=== PATIENT | female | born 1975 | race Asian ===

== ENCOUNTER 2018-01-15 22:45 | Emergency (ER) | payer OTHER ==
[~2018-01-15] VITALS: Ht 160 cm; Wt 56.7 kg
[~2018-01-15 22:45] MED LIST: CEPHALEXIN500 MG ORAL; COLACE100 MG ORAL; NKM; NORCO 5-325 TA1 EACH ORAL
--- NOTE | 2018-01-15 22:52 | Emergency Room Report ---
History of Present Illness General Chief Complaint: To Be Triaged Source: Patient Present Illness HPI 42YOF walk-in with 5 days of using 1 pad ever 30min-60min for heavy menstrual bleeding No associated pain Associated with weakness today, SOB on exerion Denies chance of , polyuria Does have some dysuria Denies chest pain, SOB, palpitations, abd pain, vomiting, dizziness has had this for >1 year Previously she had audio/visual operator than usual menstrual period Seen [employer]ION [employer]IC[employer], thought d/t cervical cyst TV sonos did Not show fibroid uterus Bleeding with any instrumentation, pap smear, speculum, intercourse No self or family history of excessive bleeding Started on oral control 3 weeks ago for menorrhagia, but doesnt take every day bc of side effects Patient had 5 abortions Initial 2-3 were D&C, subsequent from pill She told this to her CONTRIBUTION SOLICITOR but they didnt take the D&C and instrumentation would be contributing factor Allergies: Coded Allergies: No Known Allergies (Unverified , 01/15/18) Patient History Past Medical History: none Past Surgical History: none Pertinent Family History: none Social History: Denies: smoking, alcohol use, drug use Now: No Immunizations: UTD Reviewed Nursing Documentation: PMH: Agreed, PSxH: Agreed Review of Systems All Other Systems: negative except mentioned in HPI Physical Exam Sp02 EP Interpretation: reviewed, normal General Appearance: normal inspection, well appearing, no apparent distress, alert, GCS 15, non-toxic Head: normocephalic, atraumatic Eyes: bilateral eye PERRL, bilateral eye EOMI ENT: normal ENT inspection, hearing grossly normal, normal pharynx, no angioedema, normal voice, TMs + canals normal, uvula midline, moist mucus membranes Neck: normal inspection, full range of motion, supple, thyroid normal, no meningismus, no bony tend Respiratory: normal inspection, lungs clear, normal breath sounds, no rhonchi, no respiratory distress, no retraction, no accessory muscle use, no wheezing, speaking full sentences Cardiovascular #1: regular rate, rhythm, no edema, no JVD, normal capillary refill Gastrointestinal: normal inspection, normal bowel sounds, non tender, soft, no mass, no peritonitis, non-distended, no guarding, no hernia, no pulsatile mass Genitourinary: no CVA tenderness, other - Pelvic done with RN Cassandra: No external vulvovaginal lacerations, masses, bleeding. Blood pooling in vault, clot of dark blood expressed from cervical os. No lacerations to internal vaginal wall Musculoskeletal: normal inspection, back normal, normal range of motion, no calf tenderness, pelvis stable, Elda's Sign negative Neurologic: normal inspection, alert, oriented x3, responsive, locomotive supervisor III-XII nml as tested, motor strength/tone normal, cerebellar normal, normal gait, speech normal Psychiatric: normal inspection, judgement/insight normal, mood/affect normal, no suicidal/homicidal ideation, no delusions Skin: normal inspection, no rash, pallor Lymphatic: normal inspection, no adenopathy Medical Decision Making Diagnostic Impression: Primary Impression: Menorrhagia Qualified Codes: N92.0 - Excessive and frequent menstruation with regular cycle Additional Impressions: UTI (urinary tract infection) Qualified Codes: N30.01 - Acute cystitis with hematuria Cervical cyst Nabothian cyst ER Course VS with tachycardia Normotensive Pallor on exam HB/Hct stable UA with 15-20WBCs, might be contributing to menstrual bleeding. Initial Macrobid given in ED. CT pelvis with IV contrast: Couple of uterine cervix and cervical-vaginal junction cysts. Urine preg and serum beta HCG negative ?Nabothian cysts? Advised close [employer]IC[employer] followup tomorrow Take her oral control as prescribed ER course: Patient has remained stable during ED stay. Disposition: Rx Macrobid Patient is to be discharged to home. Patient is instructed to follow up with her CONTRIBUTION SOLICITOR tomorrow or within 2 days Strict return precautions discussed with patient such as fever, chills, worsening/severe pain, nausea, vomiting, which may indicate severe illness. Patient verbalizes understanding and agrees with plan. Please note that this Emergency Department Report was dictated using [employer] d[employer] technology software, occasionally this can lead to erroneous entry secondary to interpretation by the dictation equipment Status: improved Disposition: HOME, SELF-CARE LUANN SCOTT M.D. Jan 15, 2018 22:52
[2018-01-15] MEDS ORDERED: SPRINTEC1 EACH PO (23:08)
[2018-01-15 23:42] LABS: HEMATOCRIT 30.6 % (37.0-47.0); HEMOGLOBIN 10.4 G/DL (12.0-16.0); MEAN CORPUSCULAR VOLUME 89 FL (80-99); NEUTROPHILS % (AUTO) 64.1 % (45.0-75.0); PLATELET COUNT 259 K/UL (150-450); RED BLOOD COUNT 3.42 M/UL (4.20-5.40); RED CELL DISTRIBUTION WIDTH 13.3 % (11.6-14.8); WHITE BLOOD COUNT 8.3 K/UL (4.8-10.8)
[2018-01-15 23:43] LABS: BILIRUBIN, URINE NEGATIVE (NEGATIVE); COLOR,URINE RED; GLUCOSE, URINE (UA) NEGATIVE (NEGATIVE); KETONES,URINE 2+ (NEGATIVE); LEUKOCYTE ESTERASE ,URINE 2+ (NEGATIVE); NITRITE,URINE NEGATIVE (NEGATIVE); PH,URINE 5 (4.5-8.0); PROTEIN,URINE 3+ (NEGATIVE); UROBILINOGEN,URINE NORMAL MG/DL (0.0-1.0)
[2018-01-15 23:53] LABS: ANION GAP 7 mmol/L (5-15); BLOOD UREA NITROGEN 13 mg/dL (7-18); CALCIUM 8.4 MG/DL (8.5-10.1); CARBON DIOXIDE 26 MMOL/L (21-32); CHLORIDE 103 MMOL/L (98-107); POTASSIUM 3.4 MMOL/L (3.5-5.1); SODIUM 136 MMOL/L (136-145)
[2018-01-15 23:56] LABS: APPEARANCE,URINE CLOUDY
[2018-01-15 23:57] LABS: ALANINE AMINOTRANSFERASE 16 U/L (12-78); ALBUMIN 3.3 G/DL (3.4-5.0); ALBUMIN/GLOBULIN RATIO 0.8 (1.0-2.7); ALKALINE PHOSPHATASE 47 U/L (46-116); ASPARTATE AMINO TRANSFERASE 13 U/L (15-37); BILIRUBIN,TOTAL 0.1 MG/DL (0.2-1.0)
[2018-01-16 00:47] VITALS: BP 121/77
[2018-01-16] MEDS ORDERED: NITROFURANTOIN100 M2 ORAL (02:57)
[2018-01-16 03:12] VITALS: BP 104/50
[2018-01-16 03:17] VITALS: BP 104/50
--- NOTE | 2018-01-16 10:34 | Diagnostic Imaging Report ---
Clinical Indication: Vaginal bleeding Technique: No oral contrast utilized, per emergency room physician request IV administration nonionic contrast. Venous phase spiral acquisition obtained through the abdomen and pelvis. Multiplanar reconstructions were generated. Total dose length product 630.12 mGycm. CTDIvol(s) 12.77 mGy. Dose reduction achieved using automated exposure control Comparison: none Findings: Highest cuts demonstrate bilateral breast implants. The included lung bases are clear. The bones are unremarkable. Uterus demonstrates a subcentimeter submucosal low-attenuation lesion adjacent to the endometrium. There is generalized low attenuation of the cervix. There is a cervical nabothian cyst. Some fluid is seen in the endocervical canal. No adnexal mass demonstrated. There is equivocal trace free cul-de-sac fluid A 17 mm soft tissue nodule is seen lateral to the rectum within the pelvic fat on the right. No other pelvic mass or adenopathy demonstrated. The liver demonstrates a subcentimeter low-attenuation lesion in segment 7 and another in segment 8 which are too small to characterize. The gallbladder is nondistended. The bile ducts are unremarkable. The pancreas, spleen, adrenals, kidneys are unremarkable. No retroperitoneal or mesenteric mass or adenopathy. The appendix is normal. No evidence of diverticulosis or diverticulitis. No small bowel distention. No free intraperitoneal air. Impression: Nonspecific low attenuation of the cervix. This could be physiologic, or could represent infection. Neoplasm less likely but also possible, correlation with pelvic exam recommended Nonspecific fluid within the endocervical canal, could represent likely associated clinical history. Further evaluation with sonography or pelvic MRI may be useful Cervical nabothian cyst incidentally noted Probable tiny submucosal uterine fibroid Equivocal trace free cul-de-sac fluid 17 mm soft tissue nodule lateral to the rectum. This could represent an enlarged lymph node. This finding was not reported on the [facility] preliminary report was reported to Dr. Graham in the emergency room at the time of interpretation. [facility] was also notified via their website of the discrepancy Subcentimeter low-attenuation liver lesions, too small to characterize. Most likely benign simple cysts or bile hamartomas. No further follow-up necessary Incidental finding bilateral breast implants The remaining findings are in agreement with the [facility] preliminary report The CT scanner at [facility] is accredited by the [employer] and the scans are performed using protocols designed to limit radiation exposure to as low as reasonably achievable to attain images of sufficient resolution adequate for diagnostic evaluation.
== END 2018-01-16 03:24 | disposition home or self-care (01) ==
LOC: EMR 23:06
DX: N92.0 Excessive and frequent menstruation with regular cycle (principal); N39.0 Urinary tract infection, site not specified; N88.8 Other specified noninflammatory disorders of cervix uteri
CPT/HCPCS: 36415; 74177; 80053; 81003; 81025; 84702; 85025; 86850; 86900; 86901; 87086; 99284; Q9967